=== PATIENT | male | born 1970 | race Caucasian/White ===

== ENCOUNTER 2021-10-25 13:44 | Inpatient (IN) | payer OTHER, MEDICAID, SELFPAY ==
[2021-10-25] VITALS (37 sets, daily range): BP systolic 137–236; BP diastolic 77–136; PULSE 84–106; RESP 13–27; TEMP 36.6–36.8; O2SAT 93–98; BMI 30.8
--- NOTE | 2021-10-25 13:54 | DI.RAD.S_ITS ---
PROCEDURE: XR CHEST 1V INDICATIONS: shortness of breath TECHNIQUE: One view of the chest was acquired. COMPARISON: [facility], , CHEST 2 VIEW, 07/05/2013, 20:49. FINDINGS: Surgical changes and devices: None. Lungs and pleura: There are diffuse interstitial opacities bilaterally. There is a small left pleural effusion. Mediastinum: Mediastinal contours appear normal. Heart size is enlarged. Bones and chest wall: No suspicious bony lesions. Overlying soft tissues appear unremarkable. IMPRESSION: Interstitial radiopacities, pleural effusion, and cardiomegaly suggesting congestive failure. Dictated by: Kenya Farley M.D. on 10/25/2021 at 14:35 Approved by: Kenya Farley M.D. on 10/25/2021 at 14:35
--- NOTE | 2021-10-25 14:10 | ED_ITS ---
HPI - SOB/Dyspnea General Chief Complaint: Shortness of Breath/Dyspnea Stated Complaint: SOB post covid Time Seen by Provider: 10/25/21 13:52 Source: patient Mode of arrival: Ambulatory Limitations: no limitations History of Present Illness HPI Narrative: Patient here with girlfriend. Denies any chest pain. Complains of morning dyspnea that improves after 2 hours. Worse with laying flat. Sores in the day feels short of breath. Has had generalized limb edema and abdominal edema. No nausea vomiting diarrhea. Patient did have COVID 3 months ago. Patient denies any medical history. He is concerned that he may have diabetes. He was informed in the past to get worked up for diabetes. No polyuria or polydipsia. Related Data Allergies Allergy/AdvReac Type Severity Reaction Status Date / Time No Known Drug Allergies Allergy Verified 10/25/21 13:51 Review of Systems Review of Systems Narrative: GENERAL: Denies chills, fatigue, malaise, fever, sweats. HEENT: Denies sinus pain, ear pain, sore throat RESPIRATORY: Positive for dyspnea, cough CARDIOVASCULAR: Denies chest pain, palpitations GASTROINTESTINAL: Denies nausea, vomiting, abdominal pain : Denies dysuria, frequency, hematuria MUSCULOSKELETAL: denies muscle or bony pain SKIN: Denies rash, skin lesions NEUROLOGIC: Denies weakness, numbness ROS Unobtainable: All systems reviewed & are unremarkable except as noted in HPI and below Patient History Social History household members: significant other Smoking Status: Current every day smoker Smoking Status: Current every day smoker alcohol intake frequency: holidays/special occasions only Substance Use Type: does not use Exam Narrative Exam Narrative: GENERAL: in no distress, not toxic not dyspneic HEAD: Normocephalic. EYES: Pupils equal round No scleral icterus. ENT: Mucous membranes moist. NECK: Trachea midline. CARDIOVASCULAR: Regular rate and rhythm without murmurs RESPIRATORY: Clear to auscultation. Breath sounds equal bilaterally. No wheezes, rales, or rhonchi. GASTROINTESTINAL: Abdomen soft, non-tender EXTREMITIES: No gross deformities. 3+ bilateral ankle edema, calves nontender BACK: No flank tenderness. NEURO: AOx4. SKIN: Warm and dry PSYCH: Not anxious, is cooperative Initial Vital Signs Initial Vital Signs: Vital Signs Temperature 98.2 F 10/25/21 13:45 Pulse Rate 106 H 10/25/21 13:45 Respiratory Rate 15 10/25/21 13:45 Blood Pressure 219/131 H 10/25/21 13:45 Pulse Oximetry 98 10/25/21 13:45 Course Course Course Narrative: No new issues during course of stay Decision to Admit Date: 10/25/21 Decision to Admit time: 16:16 Orders Ordered: Discontinued Medications Acetaminophen (Acetaminophen 325 Mg Tablet) 650 mg PO Q4HR PRN PRN Reason: Fever/Mild Pain (1-3) Last Admin: 10/27/21 08:05 Dose: 650 mg Documented by: Admin: 10/27/21 00:55 Dose: 650 mg Documented by: Admin: 10/26/21 16:18 Dose: 650 mg Documented by: Admin: 10/26/21 09:39 Dose: 650 mg Documented by: DESTINEE Amlodipine Besylate (Amlodipine 5 Mg Tablet) 5 mg PO DAILY [facility] Last Admin: 10/27/21 08:05 Dose: 5 mg Documented by: Admin: 10/26/21 10:54 Dose: 5 mg Documented by: DESTINEE Aspirin (Aspirin Ec 81 Mg Tablet) 81 mg PO DAILY [facility] Last Admin: 10/27/21 08:06 Dose: 81 mg Documented by: DESTINEE Aspirin (Aspirin Ec 81 Mg Tablet) 81 mg PO NOW ONE Stop: 10/26/21 17:41 Last Admin: 10/26/21 19:51 Dose: 81 mg Documented by: SHERLY Atorvastatin Calcium (Atorvastatin 20 Mg Tablet) 40 mg PO BEDTIME [facility] Last Admin: 10/26/21 21:12 Dose: 40 mg Documented by: CIARA Furosemide (Furosemide 40 Mg/4 Ml Vial) 40 mg IV NOW ONE Stop: 10/25/21 15:30 Last Admin: 10/25/21 15:42 Dose: 40 mg Documented by: BELKIS Furosemide (Furosemide 40 Mg/4 Ml Vial) 40 mg IV NOW ONE Stop: 10/25/21 20:31 Last Admin: 10/25/21 20:17 Dose: 40 mg Documented by: SHERLY Furosemide (Furosemide 40 Mg Tablet) 40 mg PO DAILY [facility] Last Admin: 10/26/21 16:16 Dose: 40 mg Documented by: DESTINEE Heparin Sodium (Porcine) (Heparin 5,000 Unit/Ml Vial) 5,000 unit SUBCUT Q8HR [facility] Last Admin: 10/27/21 05:07 Dose: 5,000 unit Documented by: Admin: 10/26/21 21:13 Dose: 5,000 unit Documented by: Admin: 10/26/21 16:16 Dose: 5,000 unit Documented by: Admin: 10/26/21 06:43 Dose: 5,000 unit Documented by: Admin: 10/25/21 21:35 Dose: 5,000 unit Documented by: SHERLY Hydralazine HCl (Hydralazine 20 Mg/Ml Vial) 10 mg IV Q6HR PRN PRN Reason: BP > 160/100 Last Admin: 10/26/21 19:49 Dose: 10 mg Documented by: SHERLY Hydralazine HCl (Hydralazine 10 Mg Tablet) 10 mg PO Q8H [facility] Last Admin: 10/27/21 11:53 Dose: 10 mg Documented by: Admin: 10/27/21 02:50 Dose: 10 mg Documented by: Admin: 10/26/21 18:42 Dose: 10 mg Documented by: DESTINEE Hydralazine HCl (Hydralazine 20 Mg/Ml Vial) 10 mg IV Q4HR PRN PRN Reason: BP > 160/100 Last Admin: 10/27/21 08:06 Dose: 10 mg Documented by: Admin: 10/27/21 04:15 Dose: 10 mg Documented by: Admin: 10/27/21 00:15 Dose: 10 mg Documented by: CIARA Nicardipine HCl 25 mg/ Sodium (Chloride) 250 mls @ 50 mls/hr IV TITRATE [facility]; Protocol Last Titration: 10/26/21 11:03 Dose: 3 mg/hr, 30 mls/hr Documented by: Titration: 10/26/21 08:49 Dose: 5 mg/hr, 50 mls/hr Documented by: Titration: 10/26/21 06:47 Dose: 7.5 mg/hr, 75 mls/hr Documented by: Admin: 10/26/21 06:42 Dose: 5 mg/hr, 50 mls/hr Documented by: Titration: 10/26/21 06:24 Dose: 5 mg/hr, 50 mls/hr Documented by: Admin: 10/26/21 01:24 Dose: 5 mg/hr, 50 mls/hr Documented by: Titration: 10/26/21 01:09 Dose: 5 mg/hr, 50 mls/hr Documented by: Titration: 10/25/21 23:28 Dose: 5 mg/hr, 50 mls/hr Documented by: Admin: 10/25/21 21:15 Dose: 7.5 mg/hr, 75 mls/hr Documented by: Titration: 10/25/21 20:48 Dose: 10 mg/hr, 100 mls/hr Documented by: Titration: 10/25/21 19:45 Dose: 10 mg/hr, 100 mls/hr Documented by: Titration: 10/25/21 19:03 Dose: 7.5 mg/hr, 75 mls/hr Documented by: Titration: 10/25/21 18:42 Dose: 5 mg/hr, 50 mls/hr Documented by: Admin: 10/25/21 17:12 Dose: 5 mg/hr, 50 mls/hr Documented by: BELKIS Dextrose (D10w) 250 mls @ 999 mls/hr IV PRN PRN PRN Reason: Hypoglycemia Magnesium Sulfate (Magnesium Sulfate) 2 gm in 50 mls @ 25 mls/hr IV NOW ONE Stop: 10/27/21 10:38 Last Infusion: 10/27/21 11:49 Dose: 0 mls/hr Documented by: OSCAR Cosigned by: DESTINEE Admin: 10/27/21 09:49 Dose: 25 mls/hr Documented by: DESTINEE Cosigned by: OSCAR Insulin Glargine (Insulin Glargine 100 Unit/Ml 3ml Pen) 5 unit SUBCUT BEDTIME [facility] Last Admin: 10/26/21 21:13 Dose: 5 unit Documented by: CIARA Cosigned by: SHERLY Insulin Human Lispro (Insulin Lispro 100 Unit/Ml 3ml Vial) 0 unit SUBCUT ACHS [facility]; Protocol Last Admin: 10/27/21 13:46 Dose: Not Given Documented by: Admin: 10/27/21 09:46 Dose: Not Given Documented by: Admin: 10/26/21 21:12 Dose: 1 unit Documented by: CIARA Cosigned by: SHERLY Admin: 10/26/21 18:34 Dose: 1 unit Documented by: DESTINEE Cosigned by: KEVIN Admin: 10/26/21 13:35 Dose: 1 unit Documented by: DESTINEE Cosigned by: KEVIN Admin: 10/26/21 09:09 Dose: 1 unit Documented by: DESTINEE Cosigned by: KEVIN Admin: 10/25/21 21:35 Dose: 1 unit Documented by: SHERLY Cosigned by: JAYNE Lisinopril (Lisinopril 10 Mg Tablet) 10 mg PO NOW ONE Stop: 10/25/21 15:24 Last Admin: 10/25/21 15:29 Dose: 10 mg Documented by: BELKIS Metoprolol Succinate (Metoprolol Er 25 Mg Tablet) 25 mg PO NOW ONE Stop: 10/25/21 16:15 Last Admin: 10/25/21 16:21 Dose: 25 mg Documented by: BELKIS Metoprolol Tartrate (Metoprolol Ir 25 Mg Tablet) 25 mg PO BID [facility] Last Admin: 10/27/21 11:59 Dose: Not Given Documented by: Admin: 10/27/21 08:05 Dose: 25 mg Documented by: DESTINEE Morphine Sulfate (Morphine 2 Mg/Ml Inj) 1 mg IV Q4HR PRN PRN Reason: Pain, Moderate (4-6) Last Admin: 10/27/21 11:59 Dose: 0.5 mg Documented by: DESTINEE Nitroglycerin (Nitroglycerin Oint 1 Inch/Gm Oint...G.) 0.5 inch TOP NOW ONE Stop: 10/25/21 15:32 Last Admin: 10/25/21 15:42 Dose: 0.5 inch Documented by: BELKIS Potassium Chloride (Potassium Chloride 20 Meq Tab) 40 meq PO NOW ONE Stop: 10/25/21 22:48 Last Admin: 10/25/21 23:27 Dose: 40 meq Documented by: SHERLY Reevaluation(s) Reevaluation #1: Reviewed results with patient. He agrees for admit. Time: 16:16 Consultations Consultation #1: Spoke with hospitalist dr taylor, will admit to ICU. Start nicardipine drip. Time: 17:17 Vital Signs Vital signs: Vital Signs - 8 hr 10/25/21 13:45 10/25/21 13:49 10/25/21 14:00 Temperature 98.2 F Pulse Rate 106 H 103 H 95 H Respiratory Rate 15 19 Blood Pressure 219/131 H Pulse Oximetry 98 97 97 10/25/21 14:30 10/25/21 14:53 10/25/21 14:54 Temperature Pulse Rate 97 H 93 H 95 H Respiratory Rate 20 22 21 Blood Pressure 220/125 H Pulse Oximetry 97 96 97 10/25/21 15:00 10/25/21 15:30 10/25/21 16:00 Temperature Pulse Rate 93 H 99 H 97 H Respiratory Rate 22 25 H 16 Blood Pressure 220/133 H 236/136 H 212/129 H Pulse Oximetry 96 96 94 10/25/21 16:30 Temperature Pulse Rate 96 H Respiratory Rate 21 Blood Pressure 204/122 H Pulse Oximetry 95 MDM - SOB/Dyspnea Differential Diagnosis Differential diagnosis: Likely congestive heart failure, community acquired pneumonia and pulmonary embolism Lab Data Result diagrams: 10/26/21 05:00 10/27/21 05:00 Labs: Lab Results 10/25/21 10/25/21 10/25/21 Range/Units 14:40 14:40 14:40 WBC 5.8 (4.5-11.0) X10^3/uL RBC 4.60 (4.5-5.9) X10^6/uL Hgb 13.6 (13.5-17.5) g/dL Hct 40.6 L (41-53) % MCV 88.2 (80-100) fL MCH 29.6 (26-34) PG MCHC 33.5 (30-36) % RDW 14.7 (11.6-14.8) % Plt Count 207 (150-400) X10^3/uL Neut % (Auto) 67.0 (50-75) % Lymph % (Auto) 21.8 L (25-40) % [place] % (Auto) 6.7 (3-14) % Eos % (Auto) 3.7 (2-4) % Baso % (Auto) 0.8 (0-2) % Neut # (Auto) 3900 (1081-5246) /uL Lymph # (Auto) 1300 (5947-2516) /uL [place] # (Auto) 400 (0-900) /uL Eos # (Auto) 200 (0-450) /uL Baso # (Auto) 0 (0-100) /uL PT 12.3 (10.1-12.7) SECONDS INR 1.1 (0.9-1.3) Sodium 134 L (137-145) mmol/L Potassium 4.1 (3.4-5.1) mmol/L Chloride 110 H (98-107) mmol/L Carbon Dioxide 21 L (22-32) mmol/L BUN 27 H (9-20) mg/dL Creatinine 1.96 H (0.66-1.25) mg/dL Estimated GFR 36.4 L (>60) mL/min BUN/Creatinine Ratio 13.8 (6-22) Glucose 244 H (70-100) mg/dL Hemoglobin A1c (4.0-6.0) % Lactate (0.7-2.1) mmol/L Calcium 8.4 (8.4-10.2) mg/dL Total Bilirubin 0.4 (0.2-1.3) mg/dL AST 39 (17-59) IU/L ALT 37 (<50) IU/L Alkaline Phosphatase 106 (38-126) U/L Total Creatine Kinase (55-170) U/L CK-MB (CK-2) (<2.37) ng/mL CK-MB (CK-2) Rel Index (1.5-5.0) % Troponin I (0.01-0.034) ng/mL NT-Pro-B Natriuret Pep 49551 H (<125) pg/mL Total Protein 5.6 L (6.3-8.2) g/dL Albumin 2.8 L (3.5-5.0) g/dL Globulin 2.8 (1.7-4.1) g/dL Albumin/Globulin Ratio 1.0 (1.0-2.8) SARS-CoV-2 (PCR) (Negative) 10/25/21 10/25/21 10/25/21 Range/Units 14:40 14:40 14:40 WBC (4.5-11.0) X10^3/uL RBC (4.5-5.9) X10^6/uL Hgb (13.5-17.5) g/dL Hct (41-53) % MCV (80-100) fL MCH (26-34) PG MCHC (30-36) % RDW (11.6-14.8) % Plt Count (150-400) X10^3/uL Neut % (Auto) (50-75) % Lymph % (Auto) (25-40) % [place] % (Auto) (3-14) % Eos % (Auto) (2-4) % Baso % (Auto) (0-2) % Neut # (Auto) (8906-6219) /uL Lymph # (Auto) (6190-8290) /uL [place] # (Auto) (0-900) /uL Eos # (Auto) (0-450) /uL Baso # (Auto) (0-100) /uL PT (10.1-12.7) SECONDS INR (0.9-1.3) Sodium (137-145) mmol/L Potassium (3.4-5.1) mmol/L Chloride (98-107) mmol/L Carbon Dioxide (22-32) mmol/L BUN (9-20) mg/dL Creatinine (0.66-1.25) mg/dL Estimated GFR (>60) mL/min BUN/Creatinine Ratio (6-22) Glucose (70-100) mg/dL Hemoglobin A1c 7.7 H (4.0-6.0) % Lactate 1.8 (0.7-2.1) mmol/L Calcium (8.4-10.2) mg/dL Total Bilirubin (0.2-1.3) mg/dL AST (17-59) IU/L ALT (<50) IU/L Alkaline Phosphatase (38-126) U/L Total Creatine Kinase 301 H (55-170) U/L CK-MB (CK-2) 9.51 H (<2.37) ng/mL CK-MB (CK-2) Rel Index 3.2 (1.5-5.0) % Troponin I 0.069 H (0.01-0.034) ng/mL NT-Pro-B Natriuret Pep (<125) pg/mL Total Protein (6.3-8.2) g/dL Albumin (3.5-5.0) g/dL Globulin (1.7-4.1) g/dL Albumin/Globulin Ratio (1.0-2.8) SARS-CoV-2 (PCR) (Negative) 10/25/21 Range/Units 15:43 WBC (4.5-11.0) X10^3/uL RBC (4.5-5.9) X10^6/uL Hgb (13.5-17.5) g/dL Hct (41-53) % MCV (80-100) fL MCH (26-34) PG MCHC (30-36) % RDW (11.6-14.8) % Plt Count (150-400) X10^3/uL Neut % (Auto) (50-75) % Lymph % (Auto) (25-40) % [place] % (Auto) (3-14) % Eos % (Auto) (2-4) % Baso % (Auto) (0-2) % Neut # (Auto) (3466-4954) /uL Lymph # (Auto) (5585-2729) /uL [place] # (Auto) (0-900) /uL Eos # (Auto) (0-450) /uL Baso # (Auto) (0-100) /uL PT (10.1-12.7) SECONDS INR (0.9-1.3) Sodium (137-145) mmol/L Potassium (3.4-5.1) mmol/L Chloride (98-107) mmol/L Carbon Dioxide (22-32) mmol/L BUN (9-20) mg/dL Creatinine (0.66-1.25) mg/dL Estimated GFR (>60) mL/min BUN/Creatinine Ratio (6-22) Glucose (70-100) mg/dL Hemoglobin A1c (4.0-6.0) % Lactate (0.7-2.1) mmol/L Calcium (8.4-10.2) mg/dL Total Bilirubin (0.2-1.3) mg/dL AST (17-59) IU/L ALT (<50) IU/L Alkaline Phosphatase (38-126) U/L Total Creatine Kinase (55-170) U/L CK-MB (CK-2) (<2.37) ng/mL CK-MB (CK-2) Rel Index (1.5-5.0) % Troponin I (0.01-0.034) ng/mL NT-Pro-B Natriuret Pep (<125) pg/mL Total Protein (6.3-8.2) g/dL Albumin (3.5-5.0) g/dL Globulin (1.7-4.1) g/dL Albumin/Globulin Ratio (1.0-2.8) SARS-CoV-2 (PCR) Negative (Negative) Imaging Data Chest x-ray: Radiologist's Impression: [address] [id number] XRay Report Signed Patient: Ra Briseno MR#: [id number] : 1970 Acct:[id number] Age/Sex: 50 / M Date of Service: 10/25/21 Loc: ED Accession Number: [id number] ?? Procedure: XR chest 1V Ordering Provider: Silvano Vee MD PROCEDURE:? XR CHEST 1V ? INDICATIONS:? shortness of breath ? TECHNIQUE:? One view of the chest was acquired.? ? COMPARISON:? [facility], , CHEST 2 VIEW, 07/05/2013, 20:49. ? FINDINGS:? ? Surgical changes and devices:? None.? ? Lungs and pleura:? There are diffuse interstitial opacities bilaterally.? There is a small left pleural effusion. ? Mediastinum:? Mediastinal contours appear normal.? Heart size is enlarged. ? Bones and chest wall:? No suspicious bony lesions.? Overlying soft tissues appear unremarkable.? ? IMPRESSION:? Interstitial radiopacities, pleural effusion, and cardiomegaly suggesting congestive failure. ? ? Dictated by: Kenya Farley M.D. on 10/25/2021 at 14:35 ? ? Approved by: Kenya Farley M.D. on 10/25/2021 at 14:35 ? ECG Data Interpretation: Normal sinus rhythm right bundle-branch block rate [address] elevation or depression MDM Narrative Medical decision making narrative: Appropriate for admission for new onset congestive heart failure. Will need echocardiogram and diuresis as well as blood pressure control and diabetic wor kup. Patient requiring IV drip of nicardipine for hypertensive urgency. Will need ICU admit. Critical Care Time Critical Care Time Attestation: Critical Care Time 35 minutes: Critical care time is separate from other billable procedures. This critical care time includes consultation with family and other consulting doctors, review of records, and interpretation of data from labs, EKGs, imaging, etc. Discharge Plan Departure Patient Disposition: Admitted As Inpatient Clinical Impression: Congestive heart failure, Hypertensive urgency Admit Date/Time: 10/25/21 17:19 Admit Provider: Janay Taylor
[2021-10-25 14:59] LABS: Add Manual Diff / Slide Review NO; Basophils Absolute Auto 0 /uL (0-100); Basophils Percent Auto 0.8 % (0-2); Eosinophils Absolute Auto 200 /uL (0-450); Eosinophils Percent Auto 3.7 % (2-4); Hematocrit 40.6 % (41-53); Hemoglobin 13.6 g/dL (13.5-17.5); Lymphocytes Absolute Auto 1300 /uL (1100-4500); Lymphocytes Percent Auto 21.8 % (25-40); Mean Corpuscular HGB Conc 33.5 % (30-36); Mean Corpuscular Hemoglobin 29.6 PG (26-34); Mean Corpuscular Volume 88.2 fL (80-100); Monocytes Absolute Auto 400 /uL (0-900); Monocytes Percent Auto 6.7 % (3-14); Neutrophils Absolute Auto 3900 /uL (1500-7000); Platelet Count 207 X10^3/uL (150-400); Red Cell Distribution Width 14.7 % (11.6-14.8); White Blood Cell Count 5.8 X10^3/uL (4.5-11.0)
[2021-10-25 15:09] LABS: INR 1.1 (0.9-1.3); Prothrombin Time 12.3 SECONDS (10.1-12.7)
[2021-10-25 15:11] LABS: Lactate (Lactic Acid) 1.8 mmol/L (0.7-2.1)
[2021-10-25 15:12] LABS: Alanine Aminotransferase 37 IU/L (<50); Albumin 2.8 g/dL (3.5-5.0); Alkaline Phosphatase 106 U/L (38-126); Aspartate Aminotransferase 39 IU/L (17-59); BUN Creatinine Ratio 13.8 (6-22); Bilirubin Total 0.4 mg/dL (0.2-1.3); Blood Urea Nitrogen 27 mg/dL (9-20); Calcium 8.4 mg/dL (8.4-10.2); Carbon Dioxide 21 mmol/L (22-32); Chloride 110 mmol/L (98-107); Estimated Glomerular Filt Rate 36.4 mL/min (>60); Globulin 2.8 g/dL (1.7-4.1); Glucose 244 mg/dL (70-100); HEMOLYSIS < 15 (0-50); Potassium 4.1 mmol/L (3.4-5.1); Sodium 134 mmol/L (137-145); Total Protein 5.6 g/dL (6.3-8.2)
[2021-10-25 15:21] LABS: NT-proBNP (BNP-Adult 18+) 16000 pg/mL (<125)
[2021-10-25] MEDS: lisinopriL 10 MG TABLET PO (15:29)
[2021-10-25] MEDS: FUROSEMIDE 40 MG/4 ML VIAL IV ×2 (15:42→20:17)
[2021-10-25] MEDS: NITROGLYCERIN OINT 1 INCH/GM OINT...G. 0.5 INCH TOP (15:42)
[2021-10-25] MEDS: METOPROLOL ER 25 MG TABLET PO (16:21)
[2021-10-25 16:24] LABS: COVID19 -Nasal RAPID Negative (Negative)
[2021-10-25 16:25] LABS: Hemoglobin A1C% w Est Avg Glu 7.7 % (4.0-6.0)
[2021-10-25 17:03] LABS: Creatine Kinase 301 U/L (55-170)
[2021-10-25] MEDS: NICARDIPINE 25 MG in SODIUM CHLORIDE 0.9% 240 ML 50 ML IV (17:12)
[2021-10-25 17:16] LABS: Troponin I 0.069 ng/mL (0.01-0.034)
[2021-10-25 17:19] LABS: CKMB % Relative Index 3.2 % (1.5-5.0); Creatine Kinase MB 9.51 ng/mL (<2.37)
--- NOTE | 2021-10-25 18:19 | PC.NURSE ---
Addendum entered by Jacqueline Holm R.N. 10/25/21 18:54: 1855: Per Dr Taylor, titrate nicardipene to SBP 130-140 mmHg. Currently running at 5mg/hr and WB=628/96, will continue to monitor. Original Note: 1740: Pt admitted to room 227 via stretcher. Oriented to room and unit procedures. Call light in reach, bed in locked and low position. Educated pt on critical drips and need for PICC placement, pt offers no questions or concerns.
--- NOTE | 2021-10-25 18:39 | DI.ECHO.S_ITS ---
[facility]---------+ [facility] +---------+ : : [address] : [place] : : : : [id number] : : : : Phone: [phone] Echocardiogram Report + + :Name: ERLIN DE LA PAZ Study Date: 10/26/2021 Height: 74 in : [id number] ReadingLocation: Weight: 240 lb : : Gender: Male BSA: 2.3 m2 : :: 1970 Age: 50 yrs BP: 179/97 mmHg: :Reason For Study: New onset heart failure : :Ordering Physician: JOSE, : :IRMA Performed By: Pari Inman : :Referring: IRMA GARCIA : + + Interpretation Summary The ejection fraction is estimated to be 35-40%. There is severe inferior and inferolateral hypokinesis from base to apical. The right ventricle is mildly dilated. Right ventricular systolic function is mildly reduced. There is mild mitral regurgitation. There is right atrial collapse during atrial diastole, suggestive of increased pericardial pressure. There is a moderate left-sided pleural effusion. No prior studies available for comparison. Procedure: A two-dimensional transthoracic echocardiogram with color flow and Doppler was performed. The study quality was technically adequate. There is no prior echocardiogram noted for this patient. The patient was in normal sinus rhythm during the exam. Left Ventricle: The left ventricle is mild-moderately dilated. Left ventricular wall thickness is mildly increased. Left ventricular systolic function is moderately reduced. The ejection fraction is estimated to be 35- 40%. There is severe inferior and inferolateral hypokinesis from base to apical. Diastolic parameters suggest a relaxation abnormality of the left ventricle, consistent with probable normal filling pressures. Distolic function cannot be assessed 'missing mitral valve tissue doppler measurments.'. Right Ventricle: The right ventricle is mildly dilated. Right ventricular systolic function is mildly reduced. Atria: The left atrium is moderately dilated. Right atrial size is normal. There is no Doppler evidence for an interatrial shunt. Mitral Valve: The mitral valve leaflets appear mildly thickened, but open well. There is moderate mitral annular calcification. There is mild mitral regurgitation. Aortic Valve: The aortic valve is normal in structure and function. There is no hemodynamically significant valvular aortic stenosis. No aortic regurgitation is present. Tricuspid Valve: The tricuspid valve is normal in structure and function. There is a trace or physiologic amount of tricuspid regurgitation. Pulmonary artery pressures cannot be estimated because of the lack of a measurable TR jet velocity but the IVC suggests a CVP of around 3 mmHg. Pulmonic Valve: The pulmonic valve leaflets are thin and pliable; valve motion is normal. There is a trace or physiologic amount of pulmonic regurgitation. Great Vessels: The aortic root is normal size. The ascending aorta is normal in size. The pulmonary artery is normal size. The IVC is of normal diameter and collapses greater than 50% with a sniff. This suggests a low right atrial pressure of 3 mm Hg. Pericardium/ Pleura There is a small to moderate pericardial effusion noted. There are no echocardiographic or Doppler indications for cardiac tamponade. There is right atrial collapse during atrial diastole, suggestive of increased pericardial pressure. There is a moderate left-sided pleural effusion. MMode/2D Measurements & Calculations LVIDd: 6.5 cm LVOT diam: 2.3 cm LVIDs: 4.9 cm Ao root diam: 3.7 cm FS: 23.5 % asc Aorta Diam: 3.2 cm IVSd: 1.1 cm Ao Arch Diam (Prox Trans): 3.0 cm LVPWd: 1.1 cm LV milner. diameter/BSA (cm/m^2): 2.7 LV sys. diameter/BSA (cm/m^2): 2.1 LA A2 area: 28.9 cm2 RA long axis: 5.9 cm LA A4 area: 26.7 cm2 RA area: 19.6 cm2 LA length (vol): 6.3 cm RA vol: 55.4 ml LA vol: 103.3 ml RA : 23.6 ml/m2 LA vol index: 44.0 ml/m2 IVC diam: 1.7 cm RVD1 (basal): 4.4 cm RVD2 (mid): 3.3 cm TAPSE: 1.6 cm Doppler Measurements & Calculations Ao V2 max: 137.9 cm/sec LVOT Max Paul: 81.2 cm/sec Ao V2 mean: 102.9 cm/sec LV V1 max P.6 mmHg Ao max P.6 mmHg LV V1 VTI: 14.9 cm Ao mean P.6 mmHg KIRTI(I,D): 2.6 cm2 Ao V2 VTI: 24.3 cm KIRTI(V,D): 2.5 cm2 sev ratio: 0.61 KIRTI indexed to BSA (cm^2/m^2): 1.1 Med Peak E' Paul: 3.1 cm/sec PA V2 max: 100.9 cm/sec Lat Peak E' Paul: 6.7 cm/sec PA V2 mean: 60.3 cm/sec PA mean P.7 mmHg PA Accel Time: 0.07 sec SV(LVOT): 62.6 ml Reading Physician:PM
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
--- NOTE | 2021-10-25 20:33 | P.TELICUCN_ITS ---
History of Present Illness Consult details Chief complaint: SOB post covid :: This patients case was discussed with the bedside nurse via real time interactive two-way audiovisual telecommunication. Narrative: Pt w h/o COVID (recovered) developed PND and Orthopnea over the last month or so, with SOB for ~ the last week. He comes to the ED w LE edema and SBP > 200. Labs show a Cr 1.96 and a BG > 200. He was placed on nicardipine infusion and started on Lasix. He is admitted to the ICU and I was consulted by Dr Riley for further assistance in managing this patient. [facility] Social History household members: spouse Smoking Status: Current every day smoker Current Medications Current Medications Medications: Visit Medications (administered) Generic Name Dose Route Start Last Admin Trade Name Freq PRN Reason Stop Dose Admin Nicardipine HCl 25 mg/ Sodium 250 mls @ 50 mls/hr 10/25/21 17:00 10/25/21 19:45 Chloride IV 10 mg/hr TITRATE MAYO 100 mls/hr Titration Protocol 5 MG/HR Exam Vital Signs (past 8 hours): - 10/25/21 13:45 10/25/21 13:49 10/25/21 14:00 Temperature 98.2 F Pulse Rate 106 H 103 H 95 H Respiratory Rate 15 19 Blood Pressure 219/131 H Pulse Oximetry 98 97 97 10/25/21 14:30 10/25/21 14:53 10/25/21 14:54 Temperature Pulse Rate 97 H 93 H 95 H Respiratory Rate 20 22 21 Blood Pressure 220/125 H Pulse Oximetry 97 96 97 10/25/21 15:00 10/25/21 15:30 10/25/21 16:00 Temperature Pulse Rate 93 H 99 H 97 H Respiratory Rate 22 25 H 16 Blood Pressure 220/133 H 236/136 H 212/129 H Pulse Oximetry 96 96 94 10/25/21 16:30 10/25/21 17:00 10/25/21 17:15 Temperature Pulse Rate 96 H 99 H 96 H Respiratory Rate 21 21 21 Blood Pressure 204/122 H 218/127 H 213/132 H Pulse Oximetry 95 94 96 10/25/21 18:04 10/25/21 18:17 10/25/21 18:27 Temperature 97.8 F Pulse Rate 91 H 89 88 Respiratory Rate 24 21 16 Blood Pressure 162/90 H 162/90 H Pulse Oximetry 93 94 93 10/25/21 18:30 10/25/21 18:45 10/25/21 18:53 Temperature Pulse Rate 89 86 97 H Respiratory Rate 17 23 Blood Pressure 159/92 H 170/96 H 170/96 H Pulse Oximetry 95 93 10/25/21 19:00 10/25/21 19:15 10/25/21 19:30 Temperature Pulse Rate 90 88 86 Respiratory Rate 20 18 19 Blood Pressure 170/93 H 154/85 H 154/88 H Pulse Oximetry 93 96 96 10/25/21 19:45 Temperature Pulse Rate 88 Respiratory Rate 22 Blood Pressure 160/88 H Pulse Oximetry 96 Oxygen Delivery Method Room Air Objective Labs Result Diagrams: 10/25/21 14:40 10/25/21 14:40 Labs: Laboratory Results - last 24 hr 10/25/21 10/25/21 10/25/21 14:40 14:40 14:40 WBC 5.8 RBC 4.60 Hgb 13.6 Hct 40.6 L MCV 88.2 MCH 29.6 MCHC 33.5 RDW 14.7 Plt Count 207 Neut % (Auto) 67.0 Lymph % (Auto) 21.8 L [place] % (Auto) 6.7 Eos % (Auto) 3.7 Baso % (Auto) 0.8 Neut # (Auto) 3900 Lymph # (Auto) 1300 [place] # (Auto) 400 Eos # (Auto) 200 Baso # (Auto) 0 PT 12.3 INR 1.1 Sodium 134 L Potassium 4.1 Chloride 110 H Carbon Dioxide 21 L BUN 27 H Creatinine 1.96 H Estimated GFR 36.4 L BUN/Creatinine Ratio 13.8 Glucose 244 H Hemoglobin A1c Lactate Calcium 8.4 Total Bilirubin 0.4 AST 39 ALT 37 Alkaline Phosphatase 106 Total Creatine Kinase CK-MB (CK-2) CK-MB (CK-2) Rel Index Troponin I NT-Pro-B Natriuret Pep 50641 H Total Protein 5.6 L Albumin 2.8 L Globulin 2.8 Albumin/Globulin Ratio 1.0 SARS-CoV-2 (PCR) 10/25/21 10/25/21 10/25/21 14:40 14:40 14:40 WBC RBC Hgb Hct MCV MCH MCHC RDW Plt Count Neut % (Auto) Lymph % (Auto) [place] % (Auto) Eos % (Auto) Baso % (Auto) Neut # (Auto) Lymph # (Auto) [place] # (Auto) Eos # (Auto) Baso # (Auto) PT INR Sodium Potassium Chloride Carbon Dioxide BUN Creatinine Estimated GFR BUN/Creatinine Ratio Glucose Hemoglobin A1c 7.7 H Lactate 1.8 Calcium Total Bilirubin AST ALT Alkaline Phosphatase Total Creatine Kinase 301 H CK-MB (CK-2) 9.51 H CK-MB (CK-2) Rel Index 3.2 Troponin I 0.069 H NT-Pro-B Natriuret Pep Total Protein Albumin Globulin Albumin/Globulin Ratio SARS-CoV-2 (PCR) 10/25/21 15:43 WBC RBC Hgb Hct MCV MCH MCHC RDW Plt Count Neut % (Auto) Lymph % (Auto) [place] % (Auto) Eos % (Auto) Baso % (Auto) Neut # (Auto) Lymph # (Auto) [place] # (Auto) Eos # (Auto) Baso # (Auto) PT INR Sodium Potassium Chloride Carbon Dioxide BUN Creatinine Estimated GFR BUN/Creatinine Ratio Glucose Hemoglobin A1c Lactate Calcium Total Bilirubin AST ALT Alkaline Phosphatase Total Creatine Kinase CK-MB (CK-2) CK-MB (CK-2) Rel Index Troponin I NT-Pro-B Natriuret Pep Total Protein Albumin Globulin Albumin/Globulin Ratio SARS-CoV-2 (PCR) Negative Assessment & Plan Assessment and plan (1) Congestive heart failure: Status: Acute (2) Hypertensive urgency: Status: Acute (3) DM2 (diabetes mellitus, type 2): Status: Acute (4) Renal insufficiency: Status: Acute (5) Tobacco use disorder: Status: Acute Assessment & Plan narrative: -Diurese with lasix -Cardene infusion to keep SBP < 170. Pt likely chronic hypertensive so doesnt need perfect BP control at this time. Can add BB or JACKI-i once he is euvolemic -Termite Technician consult (new Dx CHF and DM2) -PT/OT eval -Check K/Mg now. May need replacement with diuresis -Check trop in AM for completeness -Agree w TTE -Smoking cessation consult Time Spent With Patient Critical Care time: I spent a total of [35] minutes of critical care time on this patient's care today; this time is exclusive of procedural time.
[2021-10-25] MEDS: NICARDIPINE 25 MG in SODIUM CHLORIDE 0.9% 240 ML 75 ML IV (21:15)
[2021-10-25] MEDS: HEPARIN 5,000 UNIT/ML VIAL 5000 UNIT SUBCUT (21:35)
[2021-10-25] MEDS: INSULIN LISPRO 100 UNIT/ML 3ML VIAL SUBCUT (21:35)
--- NOTE | 2021-10-25 21:42 | PC.NURSE ---
2100- Labs delayed due to tech unable to draw. Will obtain once the PICC line is inserted.
--- NOTE | 2021-10-25 21:57 | DI.RAD.S_ITS ---
PROCEDURE: XR CHEST FOR PICC 1V INDICATIONS: PiCC placement TECHNIQUE: One view of the chest was acquired. COMPARISON: [facility], KEILY, CHEST 2 VIEW, 07/05/2013, 20:49. [facility], KEILY, XR CHEST 1V, 10/25/2021, 14:03. FINDINGS: Surgical changes and devices: There is a right upper extremity PICC line with the tip extending to the cavoatrial junction. Lungs and pleura: There medial bibasilar retrocardiac opacities redemonstrated consistent with atelectasis or consolidation. The costophrenic angles are incompletely included on the current study but there are suspected small pleural effusions. Mediastinum: Mediastinal contours appear unchanged. Heart size appears mildly enlarged. Bones and chest wall: No suspicious bony lesions. Overlying soft tissues appear unremarkable. IMPRESSION: 1. PICC line tip extends to the cavoatrial junction. 2. Medial bibasilar opacities consistent with atelectasis or consolidation. 3. Suspected small bilateral pleural effusions. Dictated by: Oleg Rodriguez M.D. on 10/25/2021 at 22:47 Approved by: Oleg Rodriguez M.D. on 10/25/2021 at 22:48
[2021-10-25 22:07] LABS: HEMOLYSIS < 15 (0-50); Potassium 3.7 mmol/L (3.4-5.1)
[2021-10-25 22:18] LABS: Troponin I 0.079 ng/mL (0.01-0.034)
[2021-10-25] MEDS: POTASSIUM CHLORIDE 20 MEQ TAB 40 MEQ PO (23:27)
[2021-10-26] VITALS (35 sets, daily range): BP systolic 141–191; BP diastolic 56–107; PULSE 71–100; RESP 17–28; TEMP 36.5–37.3; O2SAT 92–98
[2021-10-26] MEDS: NICARDIPINE 25 MG in SODIUM CHLORIDE 0.9% 240 ML 50 ML IV ×2 (01:24→06:42)
[2021-10-26 05:15] LABS: Add Manual Diff / Slide Review NO; Basophils Absolute Auto 100 /uL (0-100); Basophils Percent Auto 1.2 % (0-2); Eosinophils Absolute Auto 300 /uL (0-450); Eosinophils Percent Auto 4.3 % (2-4); Hematocrit 41.5 % (41-53); Lymphocytes Absolute Auto 1800 /uL (1100-4500); Lymphocytes Percent Auto 23.3 % (25-40); Mean Corpuscular HGB Conc 33.7 % (30-36); Mean Corpuscular Hemoglobin 29.5 PG (26-34); Mean Corpuscular Volume 87.6 fL (80-100); Monocytes Absolute Auto 600 /uL (0-900); Monocytes Percent Auto 7.2 % (3-14); Neutrophils Absolute Auto 5000 /uL (1500-7000); Platelet Count 193 X10^3/uL (150-400); Red Blood Cell Count 4.74 X10^6/uL (4.5-5.9); Red Cell Distribution Width 14.5 % (11.6-14.8); White Blood Cell Count 7.8 X10^3/uL (4.5-11.0)
[2021-10-26 05:23] LABS: BUN Creatinine Ratio 14.7 (6-22); Blood Urea Nitrogen 29 mg/dL (9-20); Calcium 8.2 mg/dL (8.4-10.2); Carbon Dioxide 26 mmol/L (22-32); Chloride 109 mmol/L (98-107); Estimated Glomerular Filt Rate 36.2 mL/min (>60); Glucose 161 mg/dL (70-100); Magnesium 1.9 mg/dL (1.6-2.3); Sodium 137 mmol/L (137-145)
[2021-10-26 05:30] LABS: HEMOLYSIS 56 (0-50)
[2021-10-26 05:31] LABS: Potassium 4.6 mmol/L (3.4-5.1)
[2021-10-26] MEDS: HEPARIN 5,000 UNIT/ML VIAL 5000 UNIT SUBCUT ×3 (06:43→21:13)
[2021-10-26] MEDS: INSULIN LISPRO 100 UNIT/ML 3ML VIAL SUBCUT ×4 (09:09→21:12)
--- NOTE | 2021-10-26 09:12 | PC.NURSE ---
Addendum entered by Gracy Reagan R.N. 10/26/21 18:15: Call from Dr Uriarte re: echo results. Dr Miller able to take call, Pt is now prepping for transport. BP has increased significantly in last 2 hours. New orders obtained from Dr Miller after consult with Cardiology Dr Page. Bed not available at [facility] until tomorrow. Update to Coordinator. Addendum entered by Gracy Reagan R.N. 10/26/21 18:12: 1600-BP stable through out day. Working with dietary for education re: new diet and diagnosis. Denies pain X [id number] intermittently. Echo and renal US completed pending results. Original Note: Am shift Pt receiving cardene @ 7.5mg/hr, last BP 142/88 Tolerating well. Reduced to 5mg/hr. Per Dr Miller, goal to taper off and start PO with transition to floor care status today. Pt is cooperative and understands goals of care, somewhat overwhelmed with both new diagnoses. S.O at bedside.
[2021-10-26] MEDS: ACETAMINOPHEN 325 MG TABLET 650 MG PO ×2 (09:39→16:18)
--- NOTE | 2021-10-26 09:40 | OT.IP.EVAL ---
Current Diagnoses Type 2 diabetes mellitus without complications (10/25/21) Nicotine dependence, unspecified, uncomplicated (10/25/21) Hypertensive urgency (10/25/21) Heart failure, unspecified (10/25/21) Disorder of kidney and ureter, unspecified (10/25/21) Occupational Therapy Inpatient Evaluation/Re-Eval M1 PT/OT-IP Prior Functional Status Start: 10/26/21 09:44 Freq: NEEDED Status: Active Protocol: Document 10/26/21 09:44 [facility] (Rec: 10/26/21 09:56 [facility] [id number]) Medical Review Prior Functional Status Communication Independent Mobility and Gait Independent with no devices. 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 Social History Household Members spouse Living Arrangements House Number of Floors (Floors) Two Floors Number of Stairs To Enter/Railing? Pt enters from the garage and has 7 steps with left rail and then landing and then another 7 steps with left railing to get to the tub/shower and kitchen area. The bedroom on on the bottom level with a half bath. 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 (Rec: 10/26/21 09:56 [facility] [id number]) Occupational Therapy Current Condition Current Condition Evaluation Date 10/26/21 Treatment Diagnosis new onset CHF Diagnosis Onset Date 10/25/21 M3 OT- IP Subjective and Pain Start: 10/26/21 09:44 Freq: Status: Active Protocol: Document 10/26/21 09:44 [facility] (Rec: 10/26/21 09:56 [facility] [id number]) OT- Subjective Occupational Therapy Visit Type Type Initial Evaluation Visit Start Time 09:20 Visit Stop Time 09:40 Total Visit Minutes 20 Occupational Therapy Visit Comments Patient Comments Pt agreeing to get up for OT eval. Patient/Caregiver Goals TO go home. OT Pain Assessment Pain When Pain Assessed At Rest Pain Present Pain Present Pain Reported Location Head Intensity 2 Scale Used Numeric (0 - 10) M4 OT- IP ADL's Start: 10/26/21 09:44 Freq: Status: Active Protocol: Document 10/26/21 09:44 [facility] (Rec: 10/26/21 09:56 [facility] [id number]) OT [id number] Comments OT Self-Feeding Comments Not at meal time. OT ADL-Grooming General Evaluation Grooming Ability Independent OT ADL-Oral Care General Eval Oral Care Ability Independent OT ADL-Dressing General Eval Lower Body Dressing Ability Independent Areas Needing Assistance Socks OT ADL-Toileting Comments OT Toileting Comments Pt not having to go. OT ADL-Bathing Comments OT Bathing Comments NOt performed. M5 OT- IP IADL's Start: 10/26/21 09:44 Freq: Status: Active Protocol: Document 10/26/21 09:44 [facility] (Rec: 10/26/21 09:56 [facility] [id number]) OT-Instrumental Activities of Daily Living Home Safety Awareness Awareness of Need for Assistance at Home Good Awareness Ability to Problem Solve Emergency Able to Problem Solve Situations M6 OT- IP Functional Cognition Start: 10/26/21 09:44 Freq: Status: Active Protocol: Document 10/26/21 09:44 [facility] (Rec: 10/26/21 09:56 [facility] [id number]) Cognitive Factors Limiting Selfcare Function Cognitive Ability Level of Alertness Alert Patient Orientation Name,Age,Birthday,Month,Date, Year,Day of Week,Place, Situation Attention Span Ability Capable of Focused Attention, Capable of Sustained Attention Ability to Follow Commands Able to Follow Multi-Step Commands Memory Description No Deficits Noted Safety Awareness No Deficits Noted Problem Solving Ability No deficits Noted Cognitive Comments Cognitive Assessment Comments Pt appears to be at baseline with no cognitive deficits noted on OT eval. OT- Vision and Hearing OT- Hearing Assessment OT- Hearing Assessment WFL OT- Vision Assessment Visual Acuity Glasses All The Time M7 OT- IP Mobility and Balance Start: 10/26/21 09:44 Freq: Status: Active Protocol: Document 10/26/21 09:44 [facility] (Rec: 10/26/21 09:56 [facility] [id number]) OT- Bed Mobility Assessment Rolling Level of Assistance Independent Supine to Sit Supine to Sit Assist Independent Sit to Supine Sit to Supine Assist Independent Scooting Scooting to Edge of Bed Independent OT-Transfer Assessment Sit to and From Stand Sit to and from Stand Standby Assistance Transfers Transfer Ability Standby Assistance Technique Transfer Destination Bed Devices Transfer Assistive Devices None Comments Mobility Comments SBA mainly just to help manage all lines/tubing for pt. OT- Balance Assessment Sitting Balance and Reactions Static Sitting Balance Ability Normal Dynamic Sitting Balance Ability Normal Standing Balance and Reactions Static Standing Balance Ability Good Dynamic Standing Balance Ability Good M8 OT- IP Objective Assessments Start: 10/26/21 09:44 Freq: Status: Active Protocol: Document 10/26/21 09:44 [facility] (Rec: 10/26/21 09:56 [facility] [id number]) OT Gross Range of Motion Upper Extremity Range of Motion Assessment Within Functional Limits OT Strength Upper Extremity Strength Assessment Left Impaired Comments Strength Comments LUE at shoulder NT due to soreness, otherwise BUE 4+/5 throughout. OT- Coordination Assessment Comments Coordination Comments Pt needing assist to open packages, however per pt has trouble with his FMS for years . Pt's hand are swollen which may also contribute to his difficulty with FMS at this time. OT-Muscle Tone Assessment Muscle Tone WNL Yes M9 OT- IP Assessment and Plan Start: 10/26/21 09:44 Freq: Status: Active Protocol: Document 10/26/21 09:44 [facility] (Rec: 10/26/21 09:56 [facility] [id number]) OT Summary Assessment and Plan Potential Rehabilitation Potential Excellent Analytic Complexity at Evaluation Low Summary Assessment Summary Pt is low complexity and main barrier is new onset of CHF and at baseline for OT needs and therefore discharge from OT services. Pt has a supportive girlfriend to be able to assist him at home if needed. Pt to go home when medically stable. PT to address steps with pt. Frequency of Treatment Frequency Of Treatment Discharge Discharge Recommendations OT Discharge Recommendations Home with Assistance Transportation Needs at Discharge Private Vehicle
--- NOTE | 2021-10-26 10:17 | PM.PN.EICU ---
Subjective Subjective :: This patient was seen via real time interactive two-way audiovisual telecommunication. Pt diuresing well. SOB imepoved. Still o ncardene @ 5mg/hr Current Medications Current Medications Medications: Visit Medications (administered) Generic Name Dose Route Start Last Admin Trade Name Freq PRN Reason Stop Dose Admin Acetaminophen 650 mg 10/26/21 08:56 10/26/21 09:39 Acetaminophen 325 Mg Tablet PO 650 mg Q4HR PRN Administration Fever/Mild Pain (1-3) Heparin Sodium (Porcine) 5,000 unit 10/25/21 22:00 10/26/21 06:43 Heparin 5,000 Unit/Ml Vial SUBCUT 5,000 unit Q8HR MAYO Administration Nicardipine HCl 25 mg/ Sodium 250 mls @ 50 mls/hr 10/25/21 17:00 10/26/21 08:49 Chloride IV 5 mg/hr TITRATE MAYO 50 mls/hr Titration Protocol 5 MG/HR Insulin Human Lispro 0 unit 10/25/21 21:00 10/26/21 09:09 Insulin Lispro 100 Unit/Ml 3ml Vial SUBCUT 1 unit ACHS MAYO Administration Protocol Objective Labs Result Diagrams: 10/26/21 05:00 10/26/21 05:00 Labs: Laboratory Results - last 24 hr 10/25/21 10/25/21 10/25/21 14:40 14:40 14:40 WBC 5.8 RBC 4.60 Hgb 13.6 Hct 40.6 L MCV 88.2 MCH 29.6 MCHC 33.5 RDW 14.7 Plt Count 207 Neut % (Auto) 67.0 Lymph % (Auto) 21.8 L [place] % (Auto) 6.7 Eos % (Auto) 3.7 Baso % (Auto) 0.8 Neut # (Auto) 3900 Lymph # (Auto) 1300 [place] # (Auto) 400 Eos # (Auto) 200 Baso # (Auto) 0 PT 12.3 INR 1.1 Sodium 134 L Potassium 4.1 Chloride 110 H Carbon Dioxide 21 L BUN 27 H Creatinine 1.96 H Estimated GFR 36.4 L BUN/Creatinine Ratio 13.8 Glucose 244 H Hemoglobin A1c Lactate Calcium 8.4 Magnesium Total Bilirubin 0.4 AST 39 ALT 37 Alkaline Phosphatase 106 Total Creatine Kinase CK-MB (CK-2) CK-MB (CK-2) Rel Index Troponin I NT-Pro-B Natriuret Pep 26039 H Total Protein 5.6 L Albumin 2.8 L Globulin 2.8 Albumin/Globulin Ratio 1.0 SARS-CoV-2 (PCR) 10/25/21 10/25/21 10/25/21 14:40 14:40 14:40 WBC RBC Hgb Hct MCV MCH MCHC RDW Plt Count Neut % (Auto) Lymph % (Auto) [place] % (Auto) Eos % (Auto) Baso % (Auto) Neut # (Auto) Lymph # (Auto) [place] # (Auto) Eos # (Auto) Baso # (Auto) PT INR Sodium Potassium Chloride Carbon Dioxide BUN Creatinine Estimated GFR BUN/Creatinine Ratio Glucose Hemoglobin A1c 7.7 H Lactate 1.8 Calcium Magnesium Total Bilirubin AST ALT Alkaline Phosphatase Total Creatine Kinase 301 H CK-MB (CK-2) 9.51 H CK-MB (CK-2) Rel Index 3.2 Troponin I 0.069 H NT-Pro-B Natriuret Pep Total Protein Albumin Globulin Albumin/Globulin Ratio SARS-CoV-2 (PCR) 10/25/21 10/25/21 10/25/21 15:43 21:30 21:30 WBC RBC Hgb Hct MCV MCH MCHC RDW Plt Count Neut % (Auto) Lymph % (Auto) [place] % (Auto) Eos % (Auto) Baso % (Auto) Neut # (Auto) Lymph # (Auto) [place] # (Auto) Eos # (Auto) Baso # (Auto) PT INR Sodium Potassium 3.7 Chloride Carbon Dioxide BUN Creatinine Estimated GFR BUN/Creatinine Ratio Glucose Hemoglobin A1c Lactate Calcium Magnesium 2.0 Total Bilirubin AST ALT Alkaline Phosphatase Total Creatine Kinase CK-MB (CK-2) CK-MB (CK-2) Rel Index Troponin I 0.079 H NT-Pro-B Natriuret Pep Total Protein Albumin Globulin Albumin/Globulin Ratio SARS-CoV-2 (PCR) Negative 10/26/21 10/26/21 05:00 05:00 WBC 7.8 RBC 4.74 Hgb 14.0 Hct 41.5 MCV 87.6 MCH 29.5 MCHC 33.7 RDW 14.5 Plt Count 193 Neut % (Auto) 64.0 Lymph % (Auto) 23.3 L [place] % (Auto) 7.2 Eos % (Auto) 4.3 H Baso % (Auto) 1.2 Neut # (Auto) 5000 Lymph # (Auto) 1800 [place] # (Auto) 600 Eos # (Auto) 300 Baso # (Auto) 100 PT INR Sodium 137 Potassium 4.6 Chloride 109 H Carbon Dioxide 26 BUN 29 H Creatinine 1.97 H Estimated GFR 36.2 L BUN/Creatinine Ratio 14.7 Glucose 161 H Hemoglobin A1c Lactate Calcium 8.2 L Magnesium 1.9 Total Bilirubin AST ALT Alkaline Phosphatase Total Creatine Kinase CK-MB (CK-2) CK-MB (CK-2) Rel Index Troponin I NT-Pro-B Natriuret Pep Total Protein Albumin Globulin Albumin/Globulin Ratio SARS-CoV-2 (PCR) Exam Vital Signs (past 8 hours): - 10/26/21 02:30 10/26/21 03:00 10/26/21 03:30 Temperature Pulse Rate 87 88 84 Respiratory Rate 20 18 20 Blood Pressure 141/78 H 144/83 H Pulse Oximetry 97 96 98 10/26/21 04:00 10/26/21 04:30 10/26/21 05:00 Temperature 98.2 F Pulse Rate 92 H 85 85 Respiratory Rate 18 19 19 Blood Pressure 164/89 H 160/81 H Pulse Oximetry 98 98 96 10/26/21 05:30 10/26/21 06:00 10/26/21 06:03 Temperature Pulse Rate 85 96 H 91 H Respiratory Rate 19 19 17 Blood Pressure 188/89 H 176/80 H Pulse Oximetry 95 94 96 10/26/21 06:30 10/26/21 06:45 10/26/21 07:00 Temperature Pulse Rate 89 91 H 90 Respiratory Rate 20 18 20 Blood Pressure 162/76 H 146/72 H Pulse Oximetry 94 93 94 10/26/21 07:30 10/26/21 08:00 10/26/21 08:30 Temperature 97.7 F Pulse Rate 90 94 H 86 Respiratory Rate 18 17 18 Blood Pressure 147/82 H Pulse Oximetry 95 97 96 10/26/21 09:00 10/26/21 09:30 10/26/21 10:00 Temperature Pulse Rate 95 H 94 H 84 Respiratory Rate 23 28 H 18 Blood Pressure 148/84 H Pulse Oximetry 94 10/26/21 10:05 Temperature Pulse Rate 87 Respiratory Rate 19 Blood Pressure 143/74 H Pulse Oximetry 95 Oxygen Delivery Method Nasal Cannula Oxygen Flow Rate 0 Narrative Exam Narrative: Surrogate for exam is primary team Quality TeleICU VTE Deep Vein Thrombosis/Pulmonary Embolism Present on Admission: No Assessment & Plan Assessment and plan (1) Congestive heart failure: Status: Acute (2) Hypertensive urgency: Status: Acute (3) DM2 (diabetes mellitus, type 2): Status: Acute (4) Tobacco use disorder: Status: Acute (5) Renal insufficiency: Status: Acute Plan -Diurese with lasix -transition to 40mg daily -Cardene infusion to keep SBP < 170. - bridge to PO antihypertensives -[facility] Nursing Director consult (new Dx CHF and DM2) -PT/OT eval -trend lytes - f/u TTE -Smoking cessation consult CCT 32 min Time Spent With Patient Critical Care time: I spent a total of [] minutes of critical care time on this patient's care today; this time is exclusive of procedural time.
[2021-10-26] MEDS: AMLODIPINE 5 MG TABLET PO (10:54)
--- NOTE | 2021-10-26 13:34 | DIET.CONS ---
Dietary Consultation Note Admission Date: 10/25/2021 17:19 Assessment: 50 y/o M admitted with SOB and newly dx with T2Dm and CHF. Ra reports excessive urination, thirst, and dry mouth prior to diagnosis. Endorses +FH of both parents for DM. Seems to be coping well with diagnosis. States I expected this at some time in his life due to FH. Endorses high kcal, carb, sodium diet with frequent eating out. Quite active with job at [employer]. Diet recall: B: belvita crackers with coffee, cream, sugar L: sandwich with pudding or apple sauce D: fast food (double feliz burger with fries and med soda or burger, fries and med soda); steak potatoes and gbeans and corn Beverages: water x 2L, 2-3 cans reg soda States he use to drink 2 gallons of soda per day when he weighed >400#. Cut out soda and lost 50-60#. Then slowly added soda back into diet. Ht: 187.96 cm Wt: 108.862 kg BMI: 30.8 Last BM: 10/24/21 (10/25/21 17:40) MNA: 14 Saw Score: 23 Diet: 10/25/21 Dinner Heart Healthy Diet Diet Modifications: Sodium Level: No Added Salt 10/26/21 Lunch Carbohydrate Consistent Diet Diet Modifications: Carbohydrate level: Medium (3 CHO) Nutrition Percent Meal Consumed 100% 10/26/21 08:49 Labs: RBC 4.74 X10^6/uL (4.5-5.9) 10/26/21 05:00 Hgb 14.0 g/dL (13.5-17.5) 10/26/21 05:00 Hct 41.5 % (41-53) 10/26/21 05:00 Creatinine 1.97 mg/dL (0.66-1.25) H 10/26/21 05:00 Hemoglobin A1c 7.7 % (4.0-6.0) H 10/25/21 14:40 Lactate 1.8 mmol/L (0.7-2.1) 10/25/21 14:40 NT-Pro-B Natriuret Pep 29622 pg/mL (<125) H 10/25/21 14:40 Nutrition Diagnosis: Excessive CHO intake r/t nutrition and food related knowledge deficit and new diagnosis aeb hgA1c of 7.7%, diet recall indicating >90g CHO in meal ; Excessive sodium intake r/t nutrition and food related knowledge deficit and new diagnosis aeb SOB, CHF dx, and diet recall >2000 mg Na with fastfood intake Interventions: MNT for CHF and T2DM; provided handouts - carb counting, plate method, low sodium, T2DM new diagnosis pathophys, DM ed contact info and programming. Changed pt diet to add CCD x 45g per meal. Denies any questions at this time. Encouraged him or his girlfriend to call my office prn. EER: 45-60g CHO per meal ; 15-30g CHO per snack Monitoring/Evaluations: consult RD prn Electronically Signed by: Florinda Chopra 10/26/21 13:34 Clinical Dietitian [address] [address]
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
--- NOTE | 2021-10-26 14:43 | PM.PN.1 ---
Subjective Subjective Date Patient Seen: 10/26/21 Interval history: Patient diuresed over 4 L overnight and reports improvement in shortness of breath. He is still on nicardipine 5 milligram/hour. Echo pending. Exam Vital Signs (past 8 hours): - 10/26/21 06:45 10/26/21 07:00 10/26/21 07:30 Temperature Pulse Rate 91 H 90 90 Respiratory Rate 18 20 18 Blood Pressure 162/76 H 146/72 H Pulse Oximetry 93 94 95 10/26/21 08:00 10/26/21 08:30 10/26/21 09:00 Temperature 97.7 F Pulse Rate 94 H 86 95 H Respiratory Rate 17 18 23 Blood Pressure 147/82 H 148/84 H Pulse Oximetry 97 96 10/26/21 09:30 10/26/21 10:00 10/26/21 10:05 Temperature Pulse Rate 94 H 84 87 Respiratory Rate 28 H 18 19 Blood Pressure 143/74 H Pulse Oximetry 98 95 10/26/21 11:29 10/26/21 12:00 10/26/21 12:03 Temperature Pulse Rate 84 84 Respiratory Rate 22 23 Blood Pressure 158/85 H Pulse Oximetry 95 95 93 10/26/21 14:00 Temperature Pulse Rate Respiratory Rate Blood Pressure Pulse Oximetry 98 Oxygen Delivery Method Room Air Oxygen Flow Rate 0 Narrative Exam Narrative: General: Alert and cooperative male in no acute distress Lungs: Clear to auscultation Heart: Regular rhythm Abdomen: Nonswollen Extremities: 1+ pitting in distal LEs Neurological: Intact Objective Labs Result Diagrams: 10/26/21 05:00 10/26/21 05:00 Labs: Laboratory Results - last 24 hr 10/25/21 10/25/21 10/25/21 14:40 14:40 14:40 WBC 5.8 RBC 4.60 Hgb 13.6 Hct 40.6 L MCV 88.2 MCH 29.6 MCHC 33.5 RDW 14.7 Plt Count 207 Neut % (Auto) 67.0 Lymph % (Auto) 21.8 L [place] % (Auto) 6.7 Eos % (Auto) 3.7 Baso % (Auto) 0.8 Neut # (Auto) 3900 Lymph # (Auto) 1300 [place] # (Auto) 400 Eos # (Auto) 200 Baso # (Auto) 0 PT 12.3 INR 1.1 Sodium 134 L Potassium 4.1 Chloride 110 H Carbon Dioxide 21 L BUN 27 H Creatinine 1.96 H Estimated GFR 36.4 L BUN/Creatinine Ratio 13.8 Glucose 244 H Hemoglobin A1c Lactate Calcium 8.4 Magnesium Total Bilirubin 0.4 AST 39 ALT 37 Alkaline Phosphatase 106 Total Creatine Kinase CK-MB (CK-2) CK-MB (CK-2) Rel Index Troponin I NT-Pro-B Natriuret Pep 17545 H Total Protein 5.6 L Albumin 2.8 L Globulin 2.8 Albumin/Globulin Ratio 1.0 SARS-CoV-2 (PCR) 10/25/21 10/25/21 10/25/21 14:40 14:40 14:40 WBC RBC Hgb Hct MCV MCH MCHC RDW Plt Count Neut % (Auto) Lymph % (Auto) [place] % (Auto) Eos % (Auto) Baso % (Auto) Neut # (Auto) Lymph # (Auto) [place] # (Auto) Eos # (Auto) Baso # (Auto) PT INR Sodium Potassium Chloride Carbon Dioxide BUN Creatinine Estimated GFR BUN/Creatinine Ratio Glucose Hemoglobin A1c 7.7 H Lactate 1.8 Calcium Magnesium Total Bilirubin AST ALT Alkaline Phosphatase Total Creatine Kinase 301 H CK-MB (CK-2) 9.51 H CK-MB (CK-2) Rel Index 3.2 Troponin I 0.069 H NT-Pro-B Natriuret Pep Total Protein Albumin Globulin Albumin/Globulin Ratio SARS-CoV-2 (PCR) 10/25/21 10/25/21 10/25/21 15:43 21:30 21:30 WBC RBC Hgb Hct MCV MCH MCHC RDW Plt Count Neut % (Auto) Lymph % (Auto) [place] % (Auto) Eos % (Auto) Baso % (Auto) Neut # (Auto) Lymph # (Auto) [place] # (Auto) Eos # (Auto) Baso # (Auto) PT INR Sodium Potassium 3.7 Chloride Carbon Dioxide BUN Creatinine Estimated GFR BUN/Creatinine Ratio Glucose Hemoglobin A1c Lactate Calcium Magnesium 2.0 Total Bilirubin AST ALT Alkaline Phosphatase Total Creatine Kinase CK-MB (CK-2) CK-MB (CK-2) Rel Index Troponin I 0.079 H NT-Pro-B Natriuret Pep Total Protein Albumin Globulin Albumin/Globulin Ratio SARS-CoV-2 (PCR) Negative 10/26/21 10/26/21 05:00 05:00 WBC 7.8 RBC 4.74 Hgb 14.0 Hct 41.5 MCV 87.6 MCH 29.5 MCHC 33.7 RDW 14.5 Plt Count 193 Neut % (Auto) 64.0 Lymph % (Auto) 23.3 L [place] % (Auto) 7.2 Eos % (Auto) 4.3 H Baso % (Auto) 1.2 Neut # (Auto) 5000 Lymph # (Auto) 1800 [place] # (Auto) 600 Eos # (Auto) 300 Baso # (Auto) 100 PT INR Sodium 137 Potassium 4.6 Chloride 109 H Carbon Dioxide 26 BUN 29 H Creatinine 1.97 H Estimated GFR 36.2 L BUN/Creatinine Ratio 14.7 Glucose 161 H Hemoglobin A1c Lactate Calcium 8.2 L Magnesium 1.9 Total Bilirubin AST ALT Alkaline Phosphatase Total Creatine Kinase CK-MB (CK-2) CK-MB (CK-2) Rel Index Troponin I NT-Pro-B Natriuret Pep Total Protein Albumin Globulin Albumin/Globulin Ratio SARS-CoV-2 (PCR) PFSH Social History household members: spouse Smoking Status: Current every day smoker Assessment & Plan Assessment & Plan narrative: 1. Acute CHF unknown type -improved dyspnea with IV diuresis -change to oral furosemide 40 mg daily -decide on beta-jazmyne, Javan inhibitor after echo 2. Hypertensive urgency -improved BP with diuresis and nicardipine drip -taper off nicardipine -amlodipine 5 mg daily 3. Renal insufficiency, unknown chronicity -creatinine stable -no NSAIDs and avoid IV contrast -obtain renal ultrasound -monitor labs closely with diuresis 4. Type 2 diabetes, new diagnosis -A1c 7.7% -Lantus 5 units HS -dietitian consult 5. Cigarette nicotine dependency -provided brief smoking cessation counseling DVT prophylaxis: SubQ heparin Time Spent With Patient Critical Care time: I spent a total of [] minutes of critical care time on this patient's care today; this time is exclusive of procedural time. Quality VTE Deep Vein Thrombosis/Pulmonary Embolism Present on Admission: No
--- NOTE | 2021-10-26 14:49 | DI.US.S_ITS ---
PROCEDURE: US RENAL COMPLETE INDICATIONS: renal failure unknown chronicity TECHNIQUE: Real-time scanning was performed of the kidneys and bladder, with image documentation. COMPARISON: None. FINDINGS: Kidneys: Kidneys are normal in size. Right kidney measures 11.6 cm long; left kidney measures 10.8 cm long. Right renal cortical thickness is 1.8 cm; left renal cortical thickness is 1.8 cm. Renal cortical echotexture is normal. No hydronephrosis or nephrolithiasis. No suspicious solid mass lesions. Bladder: The bladder was decompressed at the time of the study. Miscellaneous: No free pelvic fluid. IMPRESSION: No hydronephrosis or nephrolithiasis. Dictated by: Kenya Farley M.D. on 10/26/2021 at 15:20 Approved by: Kenya Farley M.D. on 10/26/2021 at 15:21
--- NOTE | 2021-10-26 16:09 | CM.IDA ---
Initial DCP Assessment Note Pt is a 50 yo male, resident of [place], arrives w/persistent SOB and newly diagnosed with: CHF, hypertension, renal insufficiency abd Type 2 Diabetes PCP: Formerly Jg Mcmullen, [facility] Payer: [employer]/LEDY Reviewed chart, pt discussed in multidisciplinary rounds this morning. Likely here over the weekend. Met w/patient and his girlfriend Thalia this morning, introduced role. 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 Patient was previously seeing Dr Jg Mcmullen, [facility], and he was recently informed that this provider is no longer taking [employer] LEDY any longer. Patient wonders if he should switch providers or switch managed LEDY plans (?) This [employer] unable to advise; however patient states he prefers which ever option gets him medical f/u the quickest Placed call to Nella Otero at [facility] P# [phone] ext [phone]; asked for her input. she had contacted a mental health social worker by email during our call and mental health social worker advised calling [employer], [facility] P or going online to [email or web address] In order to change from [employer] to the managed LEDY plan that his current provider accepts. Once changed, the coverage will be retroactive to the beginning of the month or possibly the month prior. Provided all of this information to patient and encouraged he and his partner to place this call first thing Friday; changing LEDY providers may be a faster process than trying to secure a new patient appt with a new physician. Plan: DC expected home w/partner, provided information on changing managed LEDY plan to keep current provider Jg Barrios at [facility] LESLEY Espinoza Discharge Planning/Care Management CM Discharge Assessment Start: 10/26/21 16:02 Freq: Status: Active Protocol: Document 10/26/21 16:02 [email or web address] (Rec: 10/26/21 16:08 [id number]) Discharge Planning Assessment Assigned Machine Overhauler LESLEY Wu DPOA/Assigned Designee Name Thalia Aguilar, girlfriend Contact Information [phone] Advance Directives? No History Provided By Patient,Significant Other Prior Living Arrangements House Household Members significant other Type of transportation used prior to Drives own vehicle admit Independent with ADL's Yes Is patient alert and oriented? Yes Barriers to Discharge No Comment Home w/ SO, patient seeking medical f/u jonny, has [employer] [facility] Discharge Plan Home Transportation Arrangement Partner Referrals Initiated None needed
[2021-10-26] MEDS: FUROSEMIDE 40 MG TABLET PO (16:16)
[2021-10-26 18:06] LABS: Cholesterol 294 mg/dL (140-199); HDL Cholesterol 41 mg/dL (40-60); LDL Cholesterol Calculated 213 mg/dL (<100); Triglycerides 198 mg/dL (35-150)
[2021-10-26] MEDS: HYDRALAZINE 10 MG TABLET PO (18:42)
[2021-10-26] MEDS: HYDRALAZINE 20 MG/ML VIAL 10 MG IV (19:49)
[2021-10-26] MEDS: ASPIRIN EC 81 MG TABLET PO (19:51)
[2021-10-26 20:12] LABS: Appearance Urine UA CLEAR; Bilirubin Urine UA NEGATIVE (NEGATIVE); Color Urine UA YELLOW; Glucose Urine UA TRACE g/dL (Negative); Ketones Urine UA NEGATIVE (NEGATIVE); Leukocyte Esterase Urine UA NEGATIVE (NEGATIVE); Nitrite Urine UA NEGATIVE (Negative); Occult Blood Urine UA 1+ (Negative); Protein Urine UA 3+ (Negative); Specific Gravity Urine UA 1.015 (1.000-1.035); Urobilinogen Urine UA 0.2 E.U./dL (0.2)
[2021-10-26 20:20] LABS: Bacteria Urine None Seen; Culture Indicated Urine Cult Not Indicated; RBC Urine 1-5/HPF (0-5/HPF); Squamous Epithelial Cell Urine 0-1 /HPF (0-5/HPF); WBC Urine 0-1/HPF (0-5/HPF)
[2021-10-26] MEDS: ATORVASTATIN 20 MG TABLET 40 MG PO (21:12)
[2021-10-26] MEDS: INSULIN GLARGINE 100 UNIT/ML 3ML PEN SUBCUT (21:13)
[2021-10-27] VITALS (13 sets, daily range): BP systolic 157–201; BP diastolic 87–107; PULSE 76–98; RESP 16–22; TEMP 36.8–37.3; O2SAT 94–99
[2021-10-27] MEDS: HYDRALAZINE 20 MG/ML VIAL 10 MG IV ×3 (00:15→08:06)
[2021-10-27] MEDS: ACETAMINOPHEN 325 MG TABLET 650 MG PO ×2 (00:55→08:05)
[2021-10-27] MEDS: HYDRALAZINE 10 MG TABLET PO ×2 (02:50→11:53)
--- NOTE | 2021-10-27 04:15 | PC.NURSE ---
0400- ETIENNE Suazo notified of BP meds ineffective results. Order to continue with IV hydralizine and give am po medication early if BP elevated above parameter in 1 hour. Will monitor closely.
[2021-10-27] MEDS: HEPARIN 5,000 UNIT/ML VIAL 5000 UNIT SUBCUT (05:07)
[2021-10-27 05:40] LABS: BUN Creatinine Ratio 16.3 (6-22); Blood Urea Nitrogen 26 mg/dL (9-20); Calcium 7.7 mg/dL (8.4-10.2); Carbon Dioxide 23 mmol/L (22-32); Chloride 111 mmol/L (98-107); Glucose 158 mg/dL (70-100); Sodium 136 mmol/L (137-145)
[2021-10-27 05:53] LABS: HEMOLYSIS 78 (0-50); Potassium 4.3 mmol/L (3.4-5.1)
[2021-10-27 07:25] LABS: Magnesium 1.9 mg/dL (1.6-2.3)
--- NOTE | 2021-10-27 07:47 | PC.NURSE ---
Addendum entered by Gracy Reagan R.N. 10/27/21 15:37: 1520-Pt left via ambulance for [facility]. Addendum entered by Gracy Reagan R.N. 10/27/21 14:51: 1450-[facility] should be here for transport @ [id number]. Update provided to SO including [facility] Visitor policy. Addendum entered by Gracy Reagan R.N. 10/27/21 14:38: 1400-BP slightly better controlled with PO Hydralazine. x1 IV dose PRN. Metoprolol started PO. Tele SR with BBB. SBA with urinal, SO at bedside. Updated on continued POC and goal for transfer to [facility]. ZEPEDA persistant after APAP, given IV Morphine, Pt requested half dose. Effective. 161/93 p-81 Original Note: 0700-2 separate runs of 20 beat vtach, Mag and troponin added to AM labs. Transfer to [facility] is pending, and Coordinator Zeina made aware of clinical change in status. Pt reports no SOB or CP. Continues with Hypertension. BP 180/96
[2021-10-27] MEDS: AMLODIPINE 5 MG TABLET PO (08:05)
[2021-10-27] MEDS: METOPROLOL IR 25 MG TABLET PO (08:05)
[2021-10-27] MEDS: ASPIRIN EC 81 MG TABLET PO (08:06)
[2021-10-27 08:48] LABS: Troponin I 0.066 ng/mL (0.01-0.034)
[2021-10-27] MEDS: MAGNESIUM SULFATE 2 GM/50 ML PIGGYBACK IV (09:49)
[2021-10-27] MEDS: MORPHINE 2 MG/ML INJ 1 MG IV (11:59)
--- NOTE | 2021-10-27 12:31 | PT-IP ANOTE ---
Per rounds meeting : pt on hold for PT. Pt plans to transfer to [facility] for cardiology evaluation.
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
--- NOTE | 2021-10-27 15:05 | PT-IP ANOTE ---
checked with nurse and confirmed that pt will be transferring to [facility] in a few minutes today.
--- NOTE | 2021-10-27 15:13 | CM.DPC ---
DCP Hospital Transfer Per MD, pt still needing hospital transfer for higher level of care. head machine feeder confirms she will work on this today to see if there is a bed available for transfer. PT on hold due to medical stability. Per RN, confirmed that available bed found and accepting physician at a higher level of care hospital and pt to transfer today around 1500. LESLEY Cui
== END 2021-10-27 15:38 | disposition short-term general hospital (02) | DRG 194 ==
LOC: ED 17:17 → AC 17:20 → ICU 17:33
PROVIDERS: Internal Medicine; Nurse Practitioner Family; Admitting Provider Student in an Organized Health Care Education/Training Program; Emergency Provider Emergency Medicine; Referring Provider Emergency Medicine; Visit Provider Student in an Organized Health Care Education/Training Program
DX: I11.0 Hypertensive heart disease with heart failure (principal); I50.21 Acute systolic (congestive) heart failure; I31.3 Pericardial effusion (noninflammatory); I16.0 Hypertensive urgency; N28.9 Disorder of kidney and ureter, unspecified; I47.2 Ventricular tachycardia; F17.210 Nicotine dependence, cigarettes, uncomplicated; E11.69 Type 2 diabetes mellitus with other specified complication; E78.5 Hyperlipidemia, unspecified; I25.10 Atherosclerotic heart disease of native coronary artery without angina pectoris; Z20.822 Contact with and (suspected) exposure to COVID-19; Z86.16 Personal history of COVID-19
CPT/HCPCS: 36415; 71045; 76770; 80048; 80053; 80061; 81001; 82550; 82553; 82962; 83036; 83605; 83735; 83880; 84132; 84484; 85025; 85610; 87635; 93005; 93010; 93306; 94760; 96365; 96375; 97161; 97165; 99284; 99291; C9803; J0360; J1644; J1815; J1940; J2270; J3475

== ENCOUNTER → 2022-04-22 09:07 | Outpatient (CLI) | payer OTHER, MEDICAID, SELFPAY ==
[2021-10-25 17:40] VITALS: BMI 30.8
--- NOTE | 2022-04-22 09:23 | DI.ECHO.S_ITS ---
Interpretation Summary There is mild concentric left ventricular hypertrophy. The ejection fraction is estimated to be 50-55%. Diastolic function could not be accurately assessed due to unobtainable data. The right ventricle is normal in size and function. No significant valvular abnormalities. Unable to estimate PASP. Compared to the prior study dated 10/26/2021, the ejection fraction and segmental wall motion have increased but not entirely normalized, RV function has normalized and the pericardial effusion is no longer present. Procedure: A two-dimensional transthoracic echocardiogram with color flow and Doppler was performed. The study quality was technically adequate. Comparison is made with the echocardiogram of 10/26/2021. The patient was in normal sinus rhythm during the exam. Left Ventricle: The left ventricle is normal in size. There is mild concentric left ventricular hypertrophy. The ejection fraction is estimated to be 50-55%. There is mild hypokinesis of the inferior and inferolateral parham. Diastolic function could not be accurately assessed due to unobtainable data. Right Ventricle: The right ventricle is normal in size and function. Atria: Both atria are normal in size. The interatrial septum grossly appears intact with no obvious evidence for an atrial septal defect. Mitral Valve: There is mild to moderate mitral annular calcification. There is trace mitral regurgitation. Aortic Valve: The aortic valve opens well. There is no aortic valve stenosis. No aortic regurgitation is present. Tricuspid Valve: The tricuspid valve is normal in structure and function. There is trace tricuspid regurgitation. Pulmonary artery pressures cannot be estimated because of the lack of a measurable TR jet velocity. Pulmonic Valve: The pulmonic valve is normal in structure and function. There is no pulmonic valvular regurgitation. Great Vessels: The aortic root is normal size. The ascending aorta could not be visualized. The IVC is of normal diameter and collapses greater than 50% with a sniff. This suggests a low right atrial pressure of 3 mm Hg. Pericardium/ Pleura There is no pericardial effusion. There is no pleural effusion. MMode/2D Measurements & Calculations LVIDd: 5.7 cm LVOT diam: 2.4 cm LVIDs: 3.7 cm Ao root diam: 3.4 cm IVSd: 1.3 cm LVPWd: 1.2 cm LV milner. diameter/BSA (cm/m^2): 2.5 LV sys. diameter/BSA (cm/m^2): 1.6 FS: 35.1 % LA dimension: 3.7 cm RA long axis: 4.9 cm LA A2 area: 21.4 cm2 LA A4 area: 17.4 cm2 LA length (vol): 5.2 cm LA vol: 61.3 ml LA vol index: 27.0 ml/m2 TAPSE_phl: 3.1 cm Doppler Measurements & Calculations Ao V2 max: 155.0 cm/sec LVOT Max Paul: 109.0 cm/sec Ao V2 mean: 106.0 cm/sec LV V1 max P.8 mmHg Ao V2 VTI: 30.9 cm LV V1 VTI: 23.3 cm Ao max P.0 mmHg Ao mean P.0 mmHg KIRTI(I,D): 3.4 cm2 MV E max paul: 69.8 cm/sec KIRTI(V,D): 3.2 cm2 MV A max paul: 101.0 cm/sec KIRTI indexed to BSA (cm^2/m^2): 1.5 MV E/A: 0.69 sev ratio: 0.75 Med Peak E' Paul: 4.5 cm/sec E/E' med: 15.7 Lat Peak E' Paul: 4.8 cm/sec E/E' lat: 14.4 E/e' average: 15.1 MV dec time: 0.24 sec SV(LVOT): 105.4 ml AV VR_phl: 0.70 MV P1/2t-pr_phl: 70.0 msec KIRTI(VTI)/BSA_phl: 1.5 Reading Physician:09:06 AM
== END ==
PROVIDERS: PCP Student in an Organized Health Care Education/Training Program; Referring Provider Internal Medicine Cardiovascular Disease; Visit Provider Internal Medicine Cardiovascular Disease
DX: I50.22 Chronic systolic (congestive) heart failure (principal)
CPT/HCPCS: 93306

== ENCOUNTER 2023-05-13 13:34 | Emergency (ER) | payer OTHER, MEDICAID, SELFPAY ==
[2021-10-25 17:40] VITALS: BMI 30.8
[2023-05-13] VITALS (11 sets, daily range): BP systolic 148–180; BP diastolic 70–92; PULSE 58–64; RESP 11–22; TEMP 36.7; O2SAT 97–99; BMI 29.5
--- NOTE | 2023-05-13 13:47 | DI.RAD.S_ITS ---
PROCEDURE: XR CHEST 1V INDICATIONS: chest pain TECHNIQUE: One view of the chest was acquired. COMPARISON: [facility], CR, XR CHEST FOR PICC 1V, 10/25/2021, 21:58. FINDINGS: Surgical changes and devices: None. Lungs and pleura: Lungs are clear. No pleural effusions or pneumothorax. Mediastinum: Mediastinal contours appear normal. Heart size is normal. Bones and chest wall: No suspicious bony lesions. Overlying soft tissues appear unremarkable. IMPRESSION: No acute cardiopulmonary pathology. Dictated by: Alcides Steele M.D. on 05/13/2023 at 14:31 Approved by: Alcides Steele M.D. on 05/13/2023 at 14:33
--- NOTE | 2023-05-13 14:16 | ED.ANXIETY ---
HPI - Anxiety General Chief Complaint: Anxiety Stated Complaint: nausea/hyper ventilating Time Seen by Provider: 05/13/23 13:59 Source: patient Mode of arrival: Ambulatory History of Present Illness HPI narrative: Patient with history of CHF hypertension diabetes coronary artery disease with coronary stent is brought here by daljit from work place. Patient states he had dizziness shortness of breath and nausea just prior to arrival, it resolved by time they arrived here. Patient and daljite state they had a significant argument. He was at work, [employer]. They were walking across the parking lot and he was stressed out about the argument. He had hyperventilation dizziness and nausea. He became very stressed out again because he told work that he was going to miss today again. He is called in many days in the past missing work. He was stressed out about that. Driving here his symptoms resolved without any intervention or medication. He denies denies any recent chest pain shortness of breath or fatigue. He was seen here in September of last year for new onset CHF diabetes and was transferred to [facility] for further testing echocardiogram that led to a stress test and then heart catheterization with stent. He has been doing well since then. Patient in no distress at this time. EKG is reassuring. Patient denies denies denies any chest pain or back pain with this episode Related Data Allergies Allergy/AdvReac Type Severity Reaction Status Date / Time No Known Drug Allergies Allergy Verified 05/13/23 13:40 Review of Systems Review of Systems Narrative: GENERAL: negative chills, fatigue, malaise, fever, sweats. HEENT: negative sinus pain, ear pain, sore throat RESPIRATORY: Positive dyspnea, negative cough CARDIOVASCULAR: negative chest pain, positive palpitations GASTROINTESTINAL: negative nausea, vomiting, abdominal pain : negative dysuria, frequency, hematuria MUSCULOSKELETAL: negative muscle or bony pain SKIN: negative rash, skin lesions NEUROLOGIC: negative weakness, numbness, positive dizziness ROS Unobtainable: All systems reviewed & are unremarkable except as noted in HPI and below Patient History Social History household members: significant other Smoking Status: Current every day smoker Smoking Status: Current every day smoker tobacco type: vaping alcohol intake frequency: holidays/special occasions only Substance Use Type: marijuana Exam Narrative Exam Narrative: GENERAL: in no distress, not toxic not dyspneic HEAD: Normocephalic. EYES: Pupils equal round ENT: Mucous membranes moist. NECK: Trachea midline. CARDIOVASCULAR: Regular rate and rhythm RESPIRATORY: Clear to auscultation. Breath sounds equal bilaterally. No wheezes, rales, or rhonchi. GASTROINTESTINAL: Abdomen soft, non-tender EXTREMITIES: No gross deformities. BACK: No flank tenderness. NEURO: AOx4. Clear speech. SKIN: Warm and dry PSYCH: Not anxious, is cooperative, patient in no distress. Patient is smiling Initial Vital Signs Initial Vital Signs: Vital Signs Temperature 98.1 F 05/13/23 13:41 Pulse Rate 64 05/13/23 13:41 Respiratory Rate 18 05/13/23 13:41 Blood Pressure 180/86 H 05/13/23 13:41 Pulse Oximetry 98 05/13/23 13:41 Oxygen Delivery Method Room Air 05/13/23 13:41 Course Orders Ordered: Discontinued Medications Sodium Chloride (Normal Saline 0.9%) 1,000 mls @ 1,000 mls/hr IV BOLUS ONE Stop: 05/13/23 17:37 Last Admin: 05/13/23 16:47 Dose: Not Given Documented By: EZ Vital Signs Vital signs: Vital Signs - 8 hr 05/13/23 13:41 05/13/23 14:01 05/13/23 14:02 Temperature 98.1 F Pulse Rate 64 61 Respiratory Rate 18 Blood Pressure 180/86 H Pulse Oximetry 98 97 97 Oxygen Delivery Method Room Air 05/13/23 14:02 05/13/23 14:30 05/13/23 14:30 Temperature Pulse Rate 58 L Respiratory Rate 15 Blood Pressure 174/92 H 160/76 H Pulse Oximetry 98 Oxygen Delivery Method 05/13/23 15:00 05/13/23 15:00 05/13/23 15:30 Temperature Pulse Rate 61 59 L Respiratory Rate 22 14 Blood Pressure 157/86 H Pulse Oximetry 98 98 Oxygen Delivery Method 05/13/23 16:00 05/13/23 16:30 05/13/23 16:57 Temperature Pulse Rate 60 61 64 Respiratory Rate 19 21 11 L Blood Pressure Pulse Oximetry 98 99 98 Oxygen Delivery Method 05/13/23 16:57 05/13/23 17:00 05/13/23 17:00 Temperature Pulse Rate 62 Respiratory Rate 12 Blood Pressure 166/81 H 166/82 H Pulse Oximetry 97 Oxygen Delivery Method 05/13/23 17:30 05/13/23 17:30 Temperature Pulse Rate 61 Respiratory Rate 13 Blood Pressure 148/70 H Pulse Oximetry 97 Oxygen Delivery Method MDM - Anxiety Lab Data 05/13/23 13:55 05/13/23 13:55 Labs: Lab Results 05/13/23 05/13/23 05/13/23 Range/Units 13:55 15:05 16:30 WBC 5.1 (4.5-11.0) X10^3/uL RBC 3.08 L (4.5-5.9) X10^6/uL Hgb 8.3 L (13.5-17.5) g/dL Hct 24.8 L (41-53) % MCV 80.5 (80-100) fL MCH 26.8 (26-34) PG MCHC 33.4 (30-36) % RDW 13.6 (11.6-14.8) % Plt Count 214 (150-400) X10^3/uL Neut % (Auto) 63.8 (50-75) % Lymph % (Auto) 22.3 L (25-40) % Pickett % (Auto) 9.2 (3-14) % Eos % (Auto) 3.5 (2-4) % Baso % (Auto) 1.2 (0-2) % Neut # (Auto) 3300 (2247-2539) /uL Lymph # (Auto) 1100 (5533-4383) /uL Pickett # (Auto) 500 (0-900) /uL Eos # (Auto) 200 (0-450) /uL Baso # (Auto) 100 (0-100) /uL PT 13.1 H (10.1-12.7) SECONDS INR 1.1 (0.9-1.3) APTT 31 (26-36) SECONDS Sodium 138 (137-145) mmol/L Potassium 4.1 (3.4-5.1) mmol/L Chloride 105 (98-107) mmol/L Carbon Dioxide 23 (22-32) mmol/L BUN 61 H (9-20) mg/dL Creatinine 4.03 H (0.66-1.25) mg/dL Estimated GFR 17 L (>60) mL/min BUN/Creatinine Ratio 15.1 (6-22) Glucose 105 H (70-100) mg/dL Calcium 9.2 (8.4-10.2) mg/dL Magnesium 2.5 H (1.6-2.3) mg/dL Total Bilirubin 0.2 (0.2-1.3) mg/dL AST 28 (17-59) IU/L ALT 26 (<50) IU/L Alkaline Phosphatase 63 (38-126) U/L Total Creatine Kinase 220 H 191 H (55-170) U/L Troponin I 0.019 0.016 (0.01-0.034) ng/mL Total Protein 7.1 (6.3-8.2) g/dL Albumin 4.0 (3.5-5.0) g/dL Globulin 3.1 (1.7-4.1) g/dL Albumin/Globulin Ratio 1.3 (1.0-2.8) Lipase 180 (23-300) U/L Urine RBC None seen (0-5/HPF) Urine WBC None seen (0-5/HPF) Ur Squamous Epith Cells 0-1 /hpf (0-5/HPF) Urine Bacteria None seen (None) Ur Culture Indicated? Cult not indicated Urine Dip Bedside Urine Glucose 1000 mg/dl Bedside Urine Bilirubin - Negative Bedside Urine Ketone - Negative Urine Specific Pierpont 1.010 Bedside Urine Occult Blood - Negative Bedside Urine pH 6.0 Bedside Urine Protein ++ 100 Bedside Urine Urobilinogen - Negative Bedside Urine Nitrite - Negative Bedside Urine Leukocytes - Negative Esterase Imaging Data Chest x-ray: Radiologist's Impression: [address] [address] XRay Report Signed Patient: Ra Briseno MR#: [id number] : 1970 Acct:[id number] Age/Sex: 52 / M Date of Service: 05/13/23 Loc: ED Accession Number: [id number] Procedure: XR chest 1V Ordering Provider: Silvano Vee MD PROCEDURE: XR CHEST 1V INDICATIONS: chest pain TECHNIQUE: One view of the chest was acquired. COMPARISON: [facility], , XR CHEST FOR PICC 1V, 10/25/2021, 21:58. FINDINGS: Surgical changes and devices: None. Lungs and pleura: Lungs are clear. No pleural effusions or pneumothorax. Mediastinum: Mediastinal contours appear normal. Heart size is normal. Bones and chest wall: No suspicious bony lesions. Overlying soft tissues appear unremarkable. IMPRESSION: No acute cardiopulmonary pathology. Dictated by: Alcides Steele M.D. on 05/13/2023 at 14:31 Approved by: Alcides Steele M.D. on 05/13/2023 at 14:[address] [facility] Narrative Medical decision making narrative: Patient with history of CHF hypertension diabetes coronary artery disease with coronary stent is brought here by daljit from work place. Patient states he had dizziness shortness of breath and nausea just prior to arrival, it resolved by time they arrived here. Patient and daljite state they had a significant argument. He was at work, [employer]. They were walking across the parking lot and he was stressed out about the argument. He had hyperventilation dizziness and nausea. He became very stressed out again because he told work that he was going to miss today again. He is called in many days in the past missing work. He was stressed out about that. Driving here his symptoms resolved without any intervention or medication. He denies denies any recent chest pain shortness of breath or fatigue. He was seen here in September of last year for new onset CHF diabetes and was transferred to [facility] for further testing echocardiogram that led to a stress test and then heart catheterization with stent. He has been doing well since then. Patient in no distress at this time. EKG is reassuring. Patient denies denies denies any chest pain or back pain with this episode After history and exam CBC CMP EKG chest x-ray troponin x2 MDM CC: Palpitations dizziness dyspnea Complicating co-morbidities: Diabetes hypertension coronary disease Data collected from: Patient and daljite Medical records reviewed: Discharge summary October 27, 2021 from this hospital Differential considered: Includes but not limited to anxiety attack panic attack STEMI non-STEMI Exam documented above, pertinent findings include: Patient much more relaxed Lab Test results independently reviewed as above. Pertinent findings: WBC 5.1 hemoglobin 8.3 hematocrit 24.8 INR 1.1 sodium 138 potassium 4.1 BUN 61 creatinine 4.0 GFR 17 Troponin 0.019 Repeat troponin 0.016 Independently reviewed EKG normal sinus rhythm rate [address] elevation or depression Imaging studies independently reviewed: Chest x-ray no acute finding Consult: 4:48 p.m.. Spoke with patient's dock hand Dr. Edwards with [facility], I reviewed patient's labs and renal function, no intervention indicated this time. Patient's last creatinine was 3.3 this summer. This is expected according to Dr. Edwards. Due to patient's kidney disease process. He is appointment with him May 26, later this month to possibly consider peritoneal dialysis. No indication to transfer patient at this time. Treatments: None required Re-evaluations: 4:30 p.m.. Patient remains chest pain-free without intervention 5:39 p.m.. Patient was sleeping. Awoke patient for reviewing results. Repeat troponin is normal. Again we reviewed events of today. Patient states he had to leave work because he is so stressed out about his argument with iram. He was also stressed out that he had a clock out and leave work again. Walking in the parking lot to the car is when his symptoms started. Again never had chest pain. Return precautions reviewed with patient. At this time laboratory studies imaging are reassuring. Clinically patient likely had a panic attack. He is not had any recent chest pain dyspnea fatigue shortness of breath with exertion or at rest. Discussion: Appropriate for discharge home. Patient's symptoms are consistent with patient's emotional status today with his argument with iram. Never had chest pain. Laboratory studies imaging and exam is reassuring. Patient's kidney function is baseline. I did review with patient's dock hand. No cardiology consult indicated this time. Patient states it is not feel like his symptoms last year when he was admitted. He denies denies denies any chest pain. No back pain. No syncope. No numbness tingling or weakness. Diagnosis: Anxiety Discharge Plan Departure Patient Disposition: Home Clinical Impression: Acute anxiety Instructions: DI for Anxiety -- Adult Activity Restrictions/Additional Instructions: Return if worse if any questions or concerns. See your family doctor and drawer in [employer] bonding machine within the next week for re-evaluation. See your dock hand as scheduled this month. Continue your home medications. Return if worse if any questions or concerns. Your laboratory studies and imaging and EKG are reassuring. Your kidney function is as expected, we spoke to your dock hand together. Referrals: Tmamy Lisa DO [Primary Care Provider] - Stand Alone Forms: Patient Portal/API, Work Release Note
[2023-05-13 14:50] LABS: Add Manual Diff / Slide Review NO; Basophils Absolute Auto 100 /uL (0-100); Basophils Percent Auto 1.2 % (0-2); Eosinophils Absolute Auto 200 /uL (0-450); Eosinophils Percent Auto 3.5 % (2-4); Hematocrit 24.8 % (41-53); Hemoglobin 8.3 g/dL (13.5-17.5); Lymphocytes Absolute Auto 1100 /uL (1100-4500); Lymphocytes Percent Auto 22.3 % (25-40); Mean Corpuscular HGB Conc 33.4 % (30-36); Mean Corpuscular Hemoglobin 26.8 PG (26-34); Mean Corpuscular Volume 80.5 fL (80-100); Monocytes Absolute Auto 500 /uL (0-900); Monocytes Percent Auto 9.2 % (3-14); Neutrophils Absolute Auto 3300 /uL (1500-7000); Neutrophils Percent Auto 63.8 % (50-75); Platelet Count 214 X10^3/uL (150-400); Red Blood Cell Count 3.08 X10^6/uL (4.5-5.9); Red Cell Distribution Width 13.6 % (11.6-14.8); White Blood Cell Count 5.1 X10^3/uL (4.5-11.0)
[2023-05-13 14:54] LABS: INR 1.1 (0.9-1.3); Prothrombin Time 13.1 SECONDS (10.1-12.7)
[2023-05-13 14:57] LABS: PTT Partial Thromboplastin Tim 31 SECONDS (26-36)
[2023-05-13 14:59] LABS: Alanine Aminotransferase 26 IU/L (<50); Albumin Globulin Ratio 1.3 (1.0-2.8); Alkaline Phosphatase 63 U/L (38-126); Aspartate Aminotransferase 28 IU/L (17-59); BUN Creatinine Ratio 15.1 (6-22); Bilirubin Total 0.2 mg/dL (0.2-1.3); Blood Urea Nitrogen 61 mg/dL (9-20); Calcium 9.2 mg/dL (8.4-10.2); Carbon Dioxide 23 mmol/L (22-32); Chloride 105 mmol/L (98-107); Creatine Kinase 220 U/L (55-170); Estimated Glomerular Filt Rate 17 mL/min (>60); Globulin 3.1 g/dL (1.7-4.1); Glucose 105 mg/dL (70-100); HEMOLYSIS < 15 (0-50); Lipase 180 U/L (23-300); Magnesium 2.5 mg/dL (1.6-2.3); Potassium 4.1 mmol/L (3.4-5.1); Sodium 138 mmol/L (137-145); Total Protein 7.1 g/dL (6.3-8.2)
[2023-05-13 15:10] LABS: Troponin I 0.019 ng/mL (0.01-0.034)
--- NOTE | 2023-05-13 15:13 | PC.NURSE ---
Patient requesting to take home medications of Amlodipine 5mg and Hydralazine 50mg. Provider okay'd for patient to take these medications.
[2023-05-13 16:00] LABS: Bacteria Urine None Seen; Culture Indicated Urine Cult Not Indicated; RBC Urine None Seen (0-5/HPF); Squamous Epithelial Cell Urine 0-1 /HPF (0-5/HPF); WBC Urine None Seen (0-5/HPF)
[2023-05-13 16:53] LABS: Creatine Kinase 191 U/L (55-170)
[2023-05-13 17:06] LABS: Troponin I 0.016 ng/mL (0.01-0.034)
== END 2023-05-13 17:57 | disposition home or self-care (01) ==
PROVIDERS: Emergency Provider Emergency Medicine; PCP Student in an Organized Health Care Education/Training Program
DX: F41.9 Anxiety disorder, unspecified (principal); R07.9 Chest pain, unspecified; R42 Dizziness and giddiness
CPT/HCPCS: 36415; 71045; 80053; 81003; 81015; 82550; 83690; 83735; 84484; 85025; 85610; 85730; 93005; 93010; 99283; 99284